=== PATIENT | male | born 1935 | race Caucasian/White ===

== ENCOUNTER → 2019-09-12 | Outpatient (CLI) | payer OTHER ==
--- NOTE | 2019-09-13 09:19 | PF ---
[address] [address] PULMONARY FUNCTION REPORT Name: MARTINEZSMITH [place] [facility] [id number] Admission: 09/12/19 Attend Phys: [email or web address]. DANY Levine Discharge: Date of : 35 Report #: [id number] THIS REPORT FOR: //name// CC: Rasheed Mead DATE OF SERVICE: 09/12/2019 REQUESTING PHYSICIAN: Nurse practitioner, Varsha Mead and Dr. Enrike Carroll. Spirometry reveals a moderate decrease in FEV1 to 1.31, which is 58% of predicted. FVC is severely decreased at 1.58 or 48% of predicted. FEV1/FVC ratio was 83%. No significant change seen after inhaled bronchodilator. There is a severe decrease in the TLC to 2.80 or 44% of predicted. Diffusion capacity is severely decreased. I do note, patient had some difficulty with the maneuvers. IMPRESSION: There is evidence of a severe restrictive process. There is no evidence of airways obstruction. There is also a severe decrease in diffusion capacity. <ELECTRONICALLY SIGNED> By: Andra Graham MD 09/13/19 0919 [id number] Graham MD /nt
== END ==
LOC: M.PUL 09:49
DX: J84.9 Interstitial pulmonary disease, unspecified (principal)